=== PATIENT | male | born 1940 | race Caucasian/White ===

== ENCOUNTER → 2018-09-13 | Outpatient (CLI) | payer MEDICARE, OTHER | LOC: M.LAB 12:35 | DX: C61 Malignant neoplasm of prostate (principal) ==

== ENCOUNTER → 2018-12-07 | Outpatient (CLI) | payer MEDICARE, OTHER | LOC: M.ULTRA 12:00 | DX: M79.662 Pain in left lower leg (principal) ==

== ENCOUNTER 2019-02-22 07:45 | Emergency (ER) | payer MEDICARE, OTHER ==
[~2019-02-22] VITALS: Ht 172.7 cm; Wt 113.4 kg
[2019-02-22 07:54] VITALS: BP 156/50
[2019-02-22] MEDS ORDERED: FLUOXETINE HCL20 M1 PO (08:02)
[2019-02-22] MEDS ORDERED: FLOMAX0.4 MG PO (08:02)
[2019-02-22] MEDS ORDERED: NORVASC 2.5 MG2.5 M1 PO (08:03)
[2019-02-22] MEDS ORDERED: OMEPRAZOLE 20 M20 M1 PO (08:03)
[2019-02-22] MEDS ORDERED: LISINOPRIL2.5 MG PO (08:04)
[2019-02-22] MEDS ORDERED: TRELEGY ELLIPT1 EACH IH (08:04)
[2019-02-22] MEDS ORDERED: ASA81BEC PO (08:04)
[2019-02-22] MEDS ORDERED: KEFLEX500 M1 PO (08:19)
[2019-02-22] MEDS ORDERED: VALTREX1000 MG PO (08:19)
== END 2019-02-22 08:39 | disposition home or self-care (01) ==
LOC: M.ERS 07:45
DX: B02.9 Zoster without complications (principal); J44.9 Chronic obstructive pulmonary disease, unspecified; I10 Essential (primary) hypertension; K21.9 Gastro-esophageal reflux disease without esophagitis; N40.0 Benign prostatic hyperplasia without lower urinary tract symptoms

== ENCOUNTER → 2019-08-16 | Outpatient (CLI) | payer MEDICARE, OTHER ==
[~2019-08-16] MED LIST: ASA81BEC PO; FLOMAX0.4 MG PO; FLUOXETINE HCL20 M1 PO; KEFLEX500 M1 PO; LISINOPRIL2.5 MG PO; NORVASC 2.5 MG2.5 M1 PO; OMEPRAZOLE 20 M20 M1 PO; TRELEGY ELLIPT1 EACH IH; VALTREX1000 MG PO
== END ==
LOC: M.LAB 15:37
PROVIDERS: ATTEND Radiology Radiation Oncology
DX: C61 Malignant neoplasm of prostate (principal)

== ENCOUNTER → 2020-01-10 | Outpatient (CLI) | payer MEDICARE, OTHER | LOC: M.LAB 14:38 | PROVIDERS: ATTEND Radiology Radiation Oncology | DX: C61 Malignant neoplasm of prostate (principal) ==

== ENCOUNTER → 2020-08-20 | Outpatient (CLI) | payer MEDICARE, OTHER | LOC: M.LAB 09:57 | PROVIDERS: ATTEND Radiology Radiation Oncology | DX: C61 Malignant neoplasm of prostate (principal) ==

== ENCOUNTER → 2021-01-16 | Outpatient (CLI) | payer MEDICARE, OTHER | LOC: M.LAB 11:34 | PROVIDERS: ATTEND Radiology Radiation Oncology | DX: C61 Malignant neoplasm of prostate (principal) ==